=== PATIENT | female | born 1990 | race Caucasian/White ===

== ENCOUNTER 2018-11-17 09:51 | Inpatient (IN) ==
[2018-11-17 14:46] LABS: UR AMPHETAMINES QUAL NONE DETECTED (NONE DETECT); UR BARBITUATES QUAL NONE DETECTED (NONE DETECT); UR BENZODIAZEPIN QUAL NONE DETECTED (NONE DETECT); UR CANNABINOIDS QUAL NONE DETECTED (NONE DETECT); UR COCAINE QUAL NONE DETECTED (NONE DETECT); UR METHADONE QUAL NONE DETECTED (NONE DETECT); UR METHAMPHETAMINE QUAL NONE DETECTED (NONE DETECT); UR OPIATES QUAL NONE DETECTED (NONE DETECT); UR OXYCODONE QUAL NONE DETECTED (NONE DETECT); UR PCP QUAL NONE DETECTED (NONE DETECT); UR PROPOXYPHENE QUAL NONE DETECTED (NONE DETECT); UR TCA QUAL NONE DETECTED (NONE DETECT)
[2018-11-17] MEDS ORDERED: PHENOBARBITAL IV PRN (15:56)
[2018-11-17] MEDS ORDERED: SENOKOT PO PRN (15:56)
[2018-11-17] MEDS ORDERED: ZOFRAN ODT PO PRN (15:56)
[2018-11-17] MEDS ORDERED: NICODERM PATCH TD PRN (15:56)
[2018-11-17] MEDS ORDERED: DESYREL PO PRN (15:56)
[2018-11-17] MEDS ORDERED: TUBERSOL ID ONE (15:56)
[2018-11-17] MEDS ORDERED: IMODIUM PO PRN ×2 (15:56)
[2018-11-17] MEDS ORDERED: D5W 1,000 ML IV PRN (15:56)
[2018-11-17] MEDS ORDERED: DULCOLAX PR PRN (15:56)
[2018-11-17] MEDS ORDERED: TYLENOL PO PRN (15:56)
[2018-11-17] MEDS ORDERED: MAALOX PLUS LIQUID PO PRN (15:56)
[2018-11-17] MEDS ORDERED: NICOTINE GUM BUCCAL PRN (15:56)
[2018-11-17] MEDS ORDERED: MOTRIN PO PRN (15:56)
[2018-11-17] MEDS ORDERED: SEROQUEL PO PRN (15:56)
[2018-11-17] MEDS ORDERED: ZOFRAN IV PRN (15:56)
[2018-11-17] MEDS ORDERED: ZOFRAN IM PRN (15:56)
[2018-11-17 16:06] LABS: URINE SOURCE CLEAN CATCH
[2018-11-17 16:11] LABS: BLOOD URINE NEGATIVE (NEGATIVE); LEUKOCYTES URINE 1+ (NEGATIVE); NITRITE URINE NEGATIVE (NEGATIVE); PH URINE 6.5; PROTEIN URINE NEGATIVE (NEGATIVE); UROBILINOGEN URINE NORMAL
[2018-11-17 16:12] LABS: BILIRUBIN URINE NEGATIVE (NEGATIVE); CLARITY CLEAR (CLEAR); COLOR YELLOW; GLUCOSE URINE NEGATIVE (NEGATIVE); KETONE URINE NEGATIVE (NEGATIVE)
[2018-11-17 16:15] LABS: URINE BACTERIA 1+ /HFP; URINE CAST NONE SEEN /LPF; URINE CRYSTAL NONE SEEN /HPF; URINE EPITHELIAL CELLS >10 /HPF (<10); URINE RBC <10 /HPF (<10); URINE WBC <10 /HPF (<10); URINE YEAST NONE SEEN /HPF
[2018-11-17 16:38] LABS: HEMATOCRIT 33.8 % (37.0-47.0); MCH 28.6 PG (27-31); MCHC 32.5 g/dL (33-37); MCV 87.8 FL (81-99); MPV 10.2 FL (7.4-10.4); RBC 3.85 XMIL (4.2-5.4); RDW 12.4 % (11.5-14.5); WBC 6.03 X1000 (4.8-10.8)
[2018-11-17 16:55] LABS: INR 0.93; PROTIME 12.9 Seconds (11.0-16.0)
[2018-11-17 17:08] LABS: AGAP 10; ALBUMIN 3.3 g/dL (3.5-5.0); ALKALINE PHOSPHATASE 54 U/L (32-104); AMYLASE 54 U/L (20-200); BUN 15 mg/dL (8-22); CALCIUM 8.4 mg/dL (8.8-10.2); CHLORIDE 104 mmol/L (98-107); COSMO 279; CREATININE 0.6 mg/dL (0.5-0.9); ESTIMATED GFR > 60; GLUCOSE 102 mg/dL (70-104); GOT 44 U/L (10-30); GPT 75 U/L (10-36); LIPASE 44 U/L (13-60); POTASSIUM 3.6 mmol/L (3.5-5.1); SODIUM 139 mmol/L (136-145); TCO2 25 mmol/L (25-35); TOTAL BILIRUBIN < 0.15 mg/dL (0.20-1.00); TOTAL PROTEIN 6.2 g/dL (6.3-8.3)
[2018-11-17] MEDS ORDERED: ROBAXIN PO PRN (17:38)
[2018-11-17] MEDS ORDERED: LIBRIUM PO PRN (17:38)
[2018-11-17] MEDS ORDERED: ATARAX PO PRN (17:38)
[2018-11-17] MEDS ORDERED: SINEMET 25/100 PO PRN (17:38)
[2018-11-17] MEDS ORDERED: BENTYL PO PRN (17:38)
[2018-11-17] MEDS: SUBOXONE 2 MG/0.5 MG FILM SL SCH (19:05)
[2018-11-18] MEDS: SUBOXONE 2 MG/0.5 MG FILM SL SCH ×2 (06:49→17:51)
[2018-11-18] MEDS: PROTONIX PO SCH (06:49)
[2018-11-18] MEDS: THERA M PLUS PO SCH (08:43)
[2018-11-18] MEDS: FOLIC ACID PO SCH (08:43)
[2018-11-18] MEDS: VITAMIN B-1 PO SCH (08:43)
--- NOTE | 2018-11-18 14:35 | PROGRESS NOTE ---
DATE: 11/18/2018 SUBJECTIVE: The patient has no new complaints. PHYSICAL: Vital signs reviewed and stable. She is awake, alert. She is pleasant to talk with. HEENT: Normocephalic, atraumatic. [place]. Neck supple. No JVD. Cardiovascular: Regular rate. No murmurs. Chest clear and unlabored. Abdomen soft and nondistended. Extremities: Moves all extremities. Neurologic: No focal changes. Skin warm and dry. No rashes. ASSESSMENT: 1. Nausea and vomiting. 2. Abdominal pain. 3. Myalgias. 4. Paresthesias. 5. Paroxysmal sweating. 6. Opiate abuse, withdrawal, and stabilization. 7. Chronic tobacco abuse. PLAN: Continue patient in the hospital. Continue Suboxone. Continue to follow. Further orders as needed. cc: Luis Angel Persaud MD
--- NOTE | 2018-11-18 18:03 | HISTORY AND PHYSICAL ---
CHIEF COMPLAINT: Nausea and vomiting. HISTORY OF PRESENT ILLNESS: The patient is a 28-year-old female who notes that she has a long history of using and abusing opiates. She had actually been in a Suboxone Clinic in [place] and had been doing okay until she was no longer able to go back to that clinic for unspecified reasons. Since then, she has been attempting to buy Suboxone off the street and has not been very successful. SOCIAL HISTORY: Patient is unemployed. She is single. Lives at home in [place]. She is on disability. PAST MEDICAL HISTORY: She has a history of hepatitis C, although she has not received any treatment for it. She has chronic anxiety, depression, and had seizures as a child. She has not had any recently. PRESCRIPTIONS: She has no prescription medications. ALLERGIES: No known drug allergies. REVIEW OF SYSTEMS: CINA score is 7 secondary to nausea, vomiting, abdominal pain, frequent diarrhea, myalgias, frequent temperature changes, moderate anxiety. She is very fidgety, nervous, anxious, constantly moving about. Denies any headaches, blurred vision, change in vision. Denies any focalized numbness, tingling, or weakness in her extremities. Denies any dysuria, frequency, urgency. FAMILY HISTORY: Noncontributory. SUBSTANCE ABUSE HISTORY: Patient was in [facility] 2018 and only remained stable for a few months. She had been going to a Suboxone clinic. She started Xanax at age 23 and had not taken it in a long time and started meth at age 25 and has not used in several weeks. She started opiates at age 23. Currently, she has been buying Suboxone off the street and currently smokes a pack a day. PHYSICAL EXAMINATION: VITAL SIGNS: Reviewed. GENERAL: She is awake, alert. She is in no current respiratory distress. HEENT: Normocephalic. NECK: Supple. CARDIOVASCULAR: Regular rate. CHEST: Clear and unlabored. ABDOMEN: Soft, nondistended. EXTREMITIES: Moves all extremities. NEUROLOGIC: No focal changes. SKIN: Warm, dry. No rash. LABORATORY DATA: Reviewed. ASSESSMENT: 1. Nausea, vomiting. 2. Abdominal pain. 3. Myalgias. 4. Paresthesias. 5. Paroxysmal sweating. 6. Substance abuse, withdrawal, stabilization. 7. Chronic tobacco abuse. PLAN: I discussed with the patient the importance of stopping smoking as well as getting her life back under control. Discussed the use of Suboxone as well as outpatient counseling and lifestyle changes. We will start her on Suboxone and continue to follow. cc: Luis Angel Persaud MD
[2018-11-19] MEDS: PROTONIX PO SCH (06:09)
[2018-11-19] MEDS: SUBOXONE 2 MG/0.5 MG FILM SL SCH (06:09)
[2018-11-19 08:28] VITALS: BP 137/86
[2018-11-19] MEDS ORDERED: SUBOXONE 8 MG/2 MG FILM SL SCH (09:00)
[2018-11-19] MEDS: FOLIC ACID PO SCH (09:49)
[2018-11-19] MEDS: VITAMIN B-1 PO SCH (09:49)
[2018-11-19] MEDS: THERA M PLUS PO SCH (09:49)
--- NOTE | 2018-11-20 05:07 | DISCHARGE SUMMARY ---
ADMISSION DATE: 11/17/2018 DISCHARGE DATE: 11/19/2018 DISCHARGE DIAGNOSES: 1. Nausea and vomiting resolved. 2. Abdominal pain resolved. 3. Myalgias resolved. 4. Paresthesias resolved. 5. Opiate abuse withdrawal and stabilization. 6. Chronic anxiety depression. 7. History of hepatitis C. CONSULTATIONS: None. PROCEDURES: None. BRIEF HOSPITAL COURSE: Patient is a 28-year-old female who presented to the hospital and treated in the usual fashion, and placed on Suboxone. Counseling was performed each day by myself. The patient has continued to improve on withdrawal. She noted that the 4 mg was just not enough. She was still having symptoms. She stated that it did help but did not last long enough. She was increased to 80 mg which she tolerated very well. DISPOSITION: Greater than 30 minutes was spent in discharge planning and instructions. Discussed with patient that she needs to avoid all persons, places, and situations where she has been using and abusing in the past. She needs outpatient life counseling and drug counseling. Follow up outpatient with the treatment facility of her choice. TIME SPENT: Greater than 30 minutes was spent in total care. cc: Luis Angel Persaud MD
== END 2018-11-19 10:34 | disposition home or self-care (01) | DRG 897 ==
LOC: P.DIRADM 11:48 → P.MEDSURG 11:54
PROVIDERS: ADMIT Family Medicine; ATTEND Family Medicine
CPT/HCPCS: 80053; 80104; 80301; 80305; 80307; 80320; 81001; 82055; 82150; 83690; 84703; 85027; 85610; A9270; G0431; G0434; G0477; G0480; G6040; S4995